=== PATIENT | male | born 1965 | race Caucasian/White ===

== ENCOUNTER 2023-11-15 20:00 | Outpatient (CLI) | payer OTHER, SELFPAY | END 2023-11-15 20:01 | disposition home or self-care (01) | LOC: SLEEP 11-16 06:36 | PROVIDERS: Visit Provider Family Medicine | DX: G47.33 Obstructive sleep apnea (adult) (pediatric) (principal) | CPT/HCPCS: 95810 ==

== ENCOUNTER 2024-02-16 08:44 | Outpatient (CLI) | payer OTHER, SELFPAY ==
--- NOTE | 2024-02-16 08:47 | US_ITS ---
WS: [id number] RIGHT UPPER QUADRANT ULTRASOUND HISTORY: FATTY LIVER/INCREASING LE COMPARISON: None available. Liver: 17.3 cm in length. Liver is top normal size. Surface of the liver is undulating suggesting vira nges of cirrhosis. No mass. Mild coarse echotexture. Portal Vein: Normal hepatopetal flow with monophasic waveform. Gallbladder: Slightly contracted gallbladder with stones. There is additional soft tissue within the gallbladder which may be tumefactive sludge. Gallbladder wall is mildly prominent on the basis of con traction. CBD: 0.5 cm Pancreas: Completely obscured. Right kidney: 10.7 cm in length. Normal size and echogenicity. No hydronephrosis or mass. Aorta and IVC: Unremarkable abdominal aorta and IVC. No ascites. US/US abdomen limited 46617 IMPRESSION: 1. Contracted gallbladder with mild diffuse wall thickening. Stones and soft t issue within the gallbladder. Soft tissue does not shadow and may be tumefactiv e sludge. Consider surgical consultation for possible cholecystectomy. Otherwis e recommend 6 to 8-week gallbladder ultrasound follow-up to ensure there is no intraluminal mass. 2. Early changes of hepatic cirrhosis suspected. No liver mass.
== END 2024-02-16 08:45 | disposition home or self-care (01) ==
PROVIDERS: PCP Family Medicine; Visit Provider Family Medicine
DX: K76.0 Fatty (change of) liver, not elsewhere classified (principal); Z77.29 Contact with and (suspected) exposure to other hazardous substances; E78.5 Hyperlipidemia, unspecified; G47.33 Obstructive sleep apnea (adult) (pediatric); R73.03 Prediabetes; D86.9 Sarcoidosis, unspecified; I71.20 Thoracic aortic aneurysm, without rupture, unspecified
CPT/HCPCS: 76705

== ENCOUNTER → 2024-02-21 13:49 | Outpatient (BNVA) | payer OTHER, SELFPAY | PROVIDERS: PCP Family Medicine; Referring Provider Family Medicine; Visit Provider Surgery | DX: Z12.11 Encounter for screening for malignant neoplasm of colon (principal) | CPT/HCPCS: 99204 ==

== ENCOUNTER 2024-03-20 06:00 | Day surgery (SDC) | payer OTHER, SELFPAY ==
--- NOTE | 2024-03-20 06:01 | P.HPUD_ITS ---
Surgery/Procedure H&P Update DATE OF PROCEDURE: March 20, 2024 DATE H&P PERFORMED: 02/21/24 H&P UPDATE INFORMATION: I have reviewed H&P completed within last 30 days, I have examined patient prior to procedure, No changes to prior documentation and H&P is in [facility] [place] EMR on date indicated PLANNED PROCEDURE: Operation Date: 03/20/24 07:00 Proposed Procedures p Colonoscopy 22521, G0121, Z12.11(Not Applicable) - Hilario Davalos MD
[2024-03-20 06:16] VITALS: BP 122/67; PULSE 71; RESP 16; TEMP 36.6; O2SAT 95; BMI 40.3
[2024-03-20] MEDS: sodium chloride 0.9% 1,000 ML 30 ML IV (06:28)
--- NOTE | 2024-03-20 06:42 | ANES.PREANE2 ---
Pre-Anesthetic Assessment Height/Weight: Height 1.68 m Weight 113.398 kg Temp Pulse Resp BP Pulse Ox O2 Del Method 97.8 F 71 16 122/67 95 Room Air 03/20/24 06:16 03/20/24 06:16 03/20/24 06:16 03/20/24 06:16 03/20/24 06:16 03/20/24 06:16 Preop Diagnosis: screening Operation Date: 03/20/24 07:00 Proposed Procedures p Colonoscopy 04772, G0121, Z12.11(Not Applicable) - Hilario Davalos MD Familial anesthetic complications: none Last intake: Intake Last Liquid Date 03/19/24 Last Liquid Time 23:45 Last Solid Date 03/18/24 Last Solid Time 20:00 Social cannabis use smoke and gummie 2x week last used monday. Exam alert, oriented x 3, clear to auscultation bilaterally and regular rate & rhythm Airway Submandibular: within normal limits Cervical ROM: within normal limits Mallampati: Class II Dentition: partials (implants and front bridge) Pulmonary Sleep Apnea (CPAP compliant) previous sarcoidosis of lungs 1995 CV/HEM Hypertension None reported Hepatic fatty liver GI None reported Metabolic Diabetes Mellitus (pre-diabetic), Hyperlipidemia and Morbid Obesity [facility] [place] None reported Neuropsych None reported Anesthetic Plan ASA status: 2 Anesthesia: MAC Medications/Allergies Home Medications Medication Instructions Recorded Confirmed Last Taken Type atorvastatin 40 mg tablet 40 mg PO DAILY 02/21/24 03/20/24 03/19/24 History telmisartan 40 mg tablet 40 mg PO DAILY 02/21/24 03/20/24 03/19/24 History Allergies Allergy/AdvReac Type Severity Reaction Status Date / Time No Known Allergies Allergy Unverified 02/21/24 13:56 Current Medications Generic Name Dose Route Start Last Admin Trade Name Freq PRN Reason Stop Dose Admin Sodium Chloride 1,000 mls @ 30 mls/hr 03/20/24 06:15 03/20/24 06:28 Sodium Chloride 0.9% IV 30 mls/hr .Q24H JARROD Administration Data Anesthesia Cardiac Studies: No Data to Display
[2024-03-20 07:24] VITALS: BP 101/65; PULSE 66; RESP 18; TEMP 36.4; O2SAT 95
[2024-03-20 07:34] VITALS: BP 114/66; PULSE 65; RESP 18; O2SAT 95
[2024-03-20 07:44] VITALS: BP 147/78; PULSE 62; RESP 18; O2SAT 97
--- NOTE | 2024-03-20 08:15 | ANE.PACU2 ---
Inpatient post-anesthesia follow up: Airway intact: Yes Vital signs: Temperature 97.5 F Pulse Rate 62 Respiratory Rate 18 Blood Pressure 147/78 Pulse Oximetry 97 Oxygen Delivery Me thod Room Air Oxygen Flow Rate Fraction of Inspir ed Oxygen Hydration adequate: Yes Nausea and vomiting: No Pain level: 1 Mental status: Baseline
== END 2024-03-20 08:19 | disposition home or self-care (01) ==
PROVIDERS: PCP Family Medicine; Visit Provider Surgery
PROC: 0DJD8ZZ Inspection of Lower Intestinal Tract, Via Natural or Artificial Opening Endoscopic (ICD-10-PCS; CPT 45378; principal; 2024-03-20 07:00)
DX: Z12.11 Encounter for screening for malignant neoplasm of colon (principal); K57.30 Diverticulosis of large intestine without perforation or abscess without bleeding; K63.5 Polyp of colon; G47.30 Sleep apnea, unspecified; I10 Essential (primary) hypertension; E11.9 Type 2 diabetes mellitus without complications; E78.5 Hyperlipidemia, unspecified; E66.01 Morbid (severe) obesity due to excess calories; Z68.41 Body mass index [BMI] 40.0-44.9, adult
CPT/HCPCS: 45380; 88305; J2704; J7030

== ENCOUNTER → 2024-04-09 12:53 | Outpatient (BNVA) | payer OTHER, SELFPAY | PROVIDERS: PCP Family Medicine; Visit Provider Surgery | DX: Z09 Encounter for follow-up examination after completed treatment for conditions other than malignant neoplasm (principal) | CPT/HCPCS: 99213 ==

== ENCOUNTER → 2024-06-18 10:00 | Outpatient (BNVA) | payer OTHER, SELFPAY | PROVIDERS: PCP Family Medicine; Visit Provider Surgery | DX: K76.0 Fatty (change of) liver, not elsewhere classified (principal); K82.9 Disease of gallbladder, unspecified; Z51.81 Encounter for therapeutic drug level monitoring; Z79.1 Long term (current) use of non-steroidal anti-inflammatories (NSAID) | CPT/HCPCS: 36415; 80048; 80076; 85025; 99214 ==

== ENCOUNTER 2024-07-10 09:56 | Outpatient (CLI) | payer OTHER, SELFPAY ==
--- NOTE | 2024-07-10 10:15 | US_ITS ---
WS: [id number] RIGHT UPPER QUADRANT ULTRASOUND HISTORY: fatty liver COMPARISON: 02/16/2024 Liver: 16.7 cm in length. Normal size liver. Surface of the liver is very slightly nodular suggesting early changes of cirrhosis. Similar to the prior study. No mass. Portal Vein: Normal hepatopetal flow with monophasic waveform. Gallbladder: Normally distended gallbladder with no stones or wall thickening. CBD: 0.5 cm Pancreas: Completely obscured by bowel gas. Right kidney: 9.9 cm in length. Normal size and echogenicity. No hydronephrosis or mass. Aorta and IVC: Unremarkable abdominal aorta and IVC. No ascites. US/US gall bladder [id number] IMPRESSION: 1. Cirrhotic liver. No mass. 2. Normal gallbladder. No calcifications or stones. 3. Normal common bile duct.
== END 2024-07-10 09:57 | disposition home or self-care (01) ==
LOC: RAD 09:56
PROVIDERS: PCP Family Medicine; Visit Provider Surgery
DX: K74.60 Unspecified cirrhosis of liver (principal); K76.0 Fatty (change of) liver, not elsewhere classified
CPT/HCPCS: 76705

== ENCOUNTER → 2024-07-24 15:48 | Outpatient (BNVA) | payer OTHER, SELFPAY | PROVIDERS: PCP Family Medicine; Visit Provider Surgery | DX: K74.60 Unspecified cirrhosis of liver (principal); K75.81 Nonalcoholic steatohepatitis (NASH) | CPT/HCPCS: 99213 ==

== ENCOUNTER → 2024-08-06 10:00 | Outpatient (BNVA) | payer OTHER, SELFPAY | PROVIDERS: PCP Family Medicine; Visit Provider Surgery | DX: R13.10 Dysphagia, unspecified (principal) | CPT/HCPCS: 99214 ==

== ENCOUNTER 2024-08-20 06:01 | Day surgery (SDC) | payer OTHER, SELFPAY ==
--- NOTE | 2024-08-20 06:04 | W.PM.OPSUD ---
Surgery/Procedure H&P Update DATE OF PROCEDURE: August 20, 2024 DATE H&P PERFORMED: 07/29/24 H&P UPDATE INFORMATION: I have reviewed H&P completed within last 30 days, I have examined patient prior to procedure, No changes to prior documentation and H&P is in [facility] [place] date indicated PLANNED PROCEDURE: Operation Date: 08/20/24 07:00 Proposed Procedures p EGD Dilation W/ Balloon [id number], R13.10(Not Applicable) - Hilario Davalos MD
[2024-08-20 06:15] VITALS: BP 138/68; PULSE 65; RESP 16; TEMP 36.2; O2SAT 95; BMI 39.6
--- NOTE | 2024-08-20 06:32 | P.ANESASSM_ITS ---
Pre-Anesthetic Assessment Height/Weight: Height 1.68 m Weight 111.584 kg Temp Pulse Resp BP Pulse Ox O2 Del Method 97.2 F L 65 16 138/68 95 Room Air 08/20/24 06:15 08/20/24 06:15 08/20/24 06:15 08/20/24 06:15 08/20/24 06:15 08/20/24 06:15 Operation Date: 08/20/24 07:00 Proposed Procedures p EGD Dilation W/ Balloon [id number], R13.10(Not Applicable) - Hilario Davalos MD Familial anesthetic complications: None Was Beta Mary taken within 24 hours: N/A Was Clonidine taken within 24 hours: N/A Last intake: Intake Last Liquid Date 08/19/24 Last Liquid Time 20:00 Last Solid Date 08/19/24 Last Solid Time 20:00 Social No alcohol and No tobacco Exam alert, oriented x 3, clear to auscultation bilaterally and regular rate & rhythm Airway Submandibular: within normal limits Cervical ROM: within normal limits Mallampati: Class II Dentition: full Comments: Comments: missing left molar Non-removable bridge History/ROS No significant history except as noted and No significant complaints Pulmonary Sleep Apnea (CPAP) CV/HEM Hypertension None reported Hepatic Cirrhosis GI Gastroesophageal Reflux Disease (None this morning) Dysphagia Metabolic Hyperlipidemia and Morbid Obesity [facility] [place] None reported Anesthetic Plan ASA status: 3 Anesthesia: Anesthesia Evaluation, General and MAC Risk of > 500 ml blood loss (7ml/kg in children): No Medications/Allergies Home Medications Medication Instructions Recorded Confirmed Last Taken Type atorvastatin 40 mg tablet 40 mg PO DAILY 02/21/24 08/20/24 08/19/24 History telmisartan 40 mg tablet 40 mg PO DAILY 02/21/24 08/20/24 08/19/24 History Curcumin 1 tab PO DAILY 08/08/24 08/20/24 08/19/24 History ferrous sulfate 325 mg (65 mg 325 mg PO DAILY 08/08/24 08/20/24 08/19/24 History iron) tablet (iron) magnesium 200 mg tablet 400 mg PO BID 08/08/24 08/20/24 08/19/24 History milk thistle 175 mg tablet 175 mg PO DAILY 08/08/24 08/20/24 08/19/24 History potassium 99 mg tablet 99 mg PO BID 08/08/24 08/20/24 08/19/24 History turmeric root-anselmo root ext 1 tab PO DAILY 08/08/24 08/20/24 08/19/24 History vitamin E 268 mg (400 unit) capsule 1 cap PO DAILY 08/08/24 08/20/24 08/19/24 History zinc 50 mg tablet 50 mg PO DAILY 08/08/24 08/20/24 08/19/24 History Allergies Allergy/AdvReac Type Severity Reaction Status Date / Time No Known Allergies Allergy Unverified 08/08/24 14:02 [facility] Anesthesia Family History Mother Diabetes Social History (Updated 08/06/24 @ 10:14 by Naya Jones) Smoking and tobacco/nicotine status: former use of tobacco/nicotine Alcohol intake: former Substance/Drug Use: former Data Anesthesia Cardiac Studies: No Data to Display
[2024-08-20 07:11] VITALS: BP 113/70; PULSE 62; RESP 16; TEMP 36.4; O2SAT 93
[2024-08-20 07:27] VITALS: BP 115/85; PULSE 63; RESP 18; O2SAT 95
--- NOTE | 2024-08-20 07:46 | ANE.PACU2 ---
Inpatient post-anesthesia follow up: Airway intact: Yes Vital signs: Temperature 97.6 F Pulse Rate 63 Respiratory Rate 18 Blood Pressure 115/85 Pulse Oximetry 95 Oxygen Delivery Me thod Room Air Oxygen Flow Rate Fraction of Inspir ed Oxygen Hydration adequate: Yes Nausea and vomiting: No Pain level: 1 Mental status: Baseline
== END 2024-08-20 07:46 | disposition home or self-care (01) ==
PROVIDERS: PCP Family Medicine; Visit Provider Surgery
DX: R13.10 Dysphagia, unspecified (principal); K29.50 Unspecified chronic gastritis without bleeding; K44.9 Diaphragmatic hernia without obstruction or gangrene; K31.89 Other diseases of stomach and duodenum; I10 Essential (primary) hypertension; K21.9 Gastro-esophageal reflux disease without esophagitis; E78.5 Hyperlipidemia, unspecified; E66.01 Morbid (severe) obesity due to excess calories; Z68.39 Body mass index [BMI] 39.0-39.9, adult; Z87.891 Personal history of nicotine dependence
CPT/HCPCS: 43239; 88305; 88342; J2704; J3490

== ENCOUNTER → 2024-09-03 09:50 | Outpatient (BNVA) | payer OTHER, SELFPAY | PROVIDERS: PCP Family Medicine; Visit Provider Surgery | DX: Z09 Encounter for follow-up examination after completed treatment for conditions other than malignant neoplasm (principal) | CPT/HCPCS: 99213 ==